=== PATIENT | female | born 1945 | race Caucasian/White ===

== ENCOUNTER 2018-04-09 07:00 | Outpatient (RCR) | payer MEDICARE, MEDICAID ==
[2015-06-08 13:37] VITALS: BMI 35.9
--- NOTE | 2018-02-24 11:43 | PT INITIAL EVALUATION ---
MEDICAL DIAGNOSIS: Cervicalgia, Bilateral Shoulder Pain, Headaches TREATMENT DIAGNOSIS: Cervicalgia, Bilateral Shoulder Pain, Headaches DATE OF ONSET: 01/20/18 SUBJECTIVE: Ethel is a 72 year old female presenting to physical therapy following the gradual onset of B shoulder pain, neck pain, and headaches. Pt reports that the pain started 1 MO prior gradually in the L shoulder first radiating down into the bicep and elbow. Eventually pain also went into the R arm at elbow level as well as wrapped around the chest and neck with headaches starting a couple days ago. Pain is currently rated as 10/10 with no headache at this time. Pt also reports a history of spinal osteoporosis. Since the pain started pt also reports shoulder and arm weakness interfering with driving and crocheting. Pain is slightly improved with taking a muscle relaxant or heat. REHAB PROBLEM LIST: Increased Pain Decreased ROM Decreased Strength Decreased Endurance Decreased Function Decreased ADL's Decreased Mobility PREVIOUS MEDICAL HISTORY: See EMR OCCUPATION: Retired OBJECTIVE: Posture: Pt has significant forward head posture with a low level cervical anterior translation. ROM: Cervical ROM: flex: full no pain, ext: min-mod restrictions with pn in L shoulder, R SB: 25 degrees with pn on L side, L SB: 45 degrees, R rot: 65 degrees with pn on L side, L rot: 55 degrees with pn on R side. Strength: Not tested at this time secondary to high level pain in shoulders. Shoulder flexion at 3-/5 on L and 3/5 on R secondary to pn. Special Tests: Chris Cervical Screen: Ext: increased pn in chest wit decrease pain in R arm, flex: increased pain in L arm, retraction: pain centralized from R arm completely and to deltoid region in R arm without pain in chest (L rotation increased to 65 degrees) Other Objective Findings: Neck Pain Disability Index: 30/50 ASSESSMENT: Ethel shows signs and symptoms consistent with cervical dysfunction with radiating pain. Physical therapy is indicated to address the above listed deficits to improve pt function with ADL's and functional mobility. Short Term Goals In 3 weeks pt will centralize pain to the cervical spine only without symptoms in the chest or B arms for improved function with ADL's. In 6 weeks pt will improve cervical mobility to full in all directions without pain for improved function with ADL's. In 6 weeks pt will improve Neck Pain Disability score to <15/50 for improved function with ADL's. Patient's Goals Decrease pain in arms and chest and improve functional mobility for ADL's. PLAN: Patient to be seen for Manual Therapy/STM/MET Strengthening/condition Ice/Heat Range of Motion Spinal Stabilization Ultrasound Stretching Iontophoresis Neuromuscular Re-ed Electrical Stim Posture/Body mechanics Biofeedback Home Exercise Program Mech./Manual Traction Therapeutic Activities 3x/Week for 6 Weeks If you have any questions, comments, or concerns about this report or plan, please contact me at . Thank you, Darshana Mack, PT, DPT, CLT MTDD
--- NOTE | 2018-03-24 12:38 | PT PLAN OF CARE ---
Physician: YVROSE Maxwell Patient is being seen: 2-3x/Week Therapist: Darshana Mack, PT, DPT, CLT Medical Diagnosis: Cervicalgia, Bilateral Shoulder Pain, Headaches Treatment Diagnosis: Cervicalgia, Bilateral Shoulder Pain, Headaches Date of Onset: 01/20/18 Date of Initial Evaluation: 02/24/18 Date patient was last seen: 03/24/18 Number of treatments: 10 Number of cancellations/No shows: 0 INTERVENTIONS: Manual Therapy/STM/MET Strengthening/condition Ice/Heat Range of Motion Spinal Stabilization Ultrasound Stretching Iontophoresis Neuromuscular Re-ed Electrical Stim Posture/Body mechanics Biofeedback Home Exercise Program Mech./Manual Traction Therapeutic Activities GOALS: In 3 weeks pt will centralize pain to the cervical spine only without symptoms in the chest or B arms for improved function with ADL's. MET In 6 weeks pt will improve cervical mobility to full in all directions without pain for improved function with ADL's. In 6 weeks pt will improve Neck Pain Disability score to <15/50 for improved function with ADL's. PATIENT'S GOAL: Decrease pain in arms and chest and improve functional mobility for ADL's. Status of Patient's Goals: / MET Patient Compliance: Good Prognosis: Good Reasons for continuing therapy: Ethel shows good progress with centralization of radiating cervical neck pain. Pain is consistently lowered with associated increased function and mobility with B shoulders and UE, however pain is not yet absent. Secondary to impingement pt also shows significant RTC atrophy, and improper scapular-humeral mechanics, resulting in shoulder impingement with overhead reaching and pain with lifting. Further PT to continue to decrease radiating cervical pain while also correcting muscular imbalance throughout B shoulders for improved function with ADL's. Posture: Pt has mild forward head posture with a low level cervical anterior translation and slight L lateral shift. ROM: Cervical ROM: flex: full no pain, ext: full with no pain, R SB: 35 degrees, L SB: 30 degrees with pn on L side, R rot: 70 degrees with pn on L side, L rot: 60 degrees with pn on L side. Shoulder ROM: Flexion: Full B with pain in end range on L side, Abd:L 90 degrees with pain, R full with pn at end range Strength: Shoulder MMT: flexion: L 4/5 with pain, R 4+/5, ext: B 4+/5, ER: B 4+/5, IR B 4+/5 with pain, Abd: L 4-/5 with pain, R 4/5 with pain Special Tests: Chris Cervical Screen: Ext: increased pn in chest wit decrease pain in R arm, flex: increased pain in L arm, retraction: pain centralized from R arm completely and to deltoid region in R arm without pain in chest (L rotation increased to 65 degrees) Outcome Measures: Neck Pain Disability Index: 16/50 If you have any questions or concerns, please feel free to contact me at [phone]. Thank you, Darshana Mack, PT, DPT, CLT MTDD
[~2018-04-09 07:00] MED LIST: HYDR-385 PO; LEVO88TA43 PO
--- NOTE | 2018-04-09 07:41 | PT PLAN OF CARE ---
Physician: YVROSE Maxwell Patient is being seen: 2-3x/week Therapist: Darshana Mack, PT, DPT, CLT Medical Diagnosis: Cervicalgia, Bilateral Shoulder Pain, Headaches Treatment Diagnosis: Cervicalgia, Bilateral Shoulder Pain, Headaches Date of Onset: 01/20/18 Date of Initial Evaluation: 02/24/18 Date patient was last seen: 04/09/18 Number of treatments: 16 Number of cancellations/No shows: 1 INTERVENTIONS: Manual Therapy/STM/MET Strengthening/condition Ice/Heat Range of Motion Spinal Stabilization Ultrasound Stretching Iontophoresis Neuromuscular Re-ed Electrical Stim Posture/Body mechanics Biofeedback Home Exercise Program Mech./Manual Traction Therapeutic Activities GOALS: In 3 weeks pt will centralize pain to the cervical spine only without symptoms in the chest or B arms for improved function with ADL's. MET In 6 weeks pt will improve cervical mobility to full in all directions without pain for improved function with ADL's. MET In 6 weeks pt will improve Neck Pain Disability score to <15/50 for improved function with ADL's. MET PATIENT'S GOAL: Decrease pain in arms and chest and improve functional mobility for ADL's. Status of Patient's Goals: 3/3 MET Patient Compliance: Good Prognosis: Good Reasons for discharge from therapy: Ethel is to discharge from physical therapy at this time secondary to completion of 3/3 functional goals. At the time of discharge pt is pain free with full return to functional and recreational activities without pain. Pt is compliant with her HEP and is to continue if any pain recurs. Posture: Pt has mild forward head posture with a low level cervical anterior translation and slight L lateral shift. ROM: Cervical ROM: flex: full no pain, ext: full with no pain, R SB: 35 degrees, L SB: 30 degrees, R rot: 70 degrees, L rot: 60 degrees Strength: Shoulder MMT: flexion: B 4/+5, ext: B 4+/5, ER: B 4+/5, IR B 4+/5, Abd: B 4/5 Special Tests: Chris Cervical Screen: Ext: increased pn in chest wit decrease pain in R arm, flex: increased pain in L arm, retraction: pain centralized from R arm completely and to deltoid region in R arm without pain in chest (L rotation increased to 65 degrees) Outcome Measures: Neck Pain Disability Index: 2/50 If you have any questions or concerns, please feel free to contact me at [phone]. Thank you, Darshana Mack, PT, DPT, CLT BARID
== END 2018-04-09 18:00 | disposition home or self-care (01) ==
LOC: PT 07:00
PROVIDERS: ATTEND Physician Assistant
DX: M54.2 Cervicalgia (principal); R51 Headache; M25.511 Pain in right shoulder; M25.512 Pain in left shoulder
CPT/HCPCS: 97161

== ENCOUNTER → 2018-11-10 | Outpatient (CLI) | payer MEDICARE, MEDICAID ==
[2015-06-08 13:37] VITALS: BMI 35.9
[2018-11-10 08:54] LABS: PLATELET COUNT, AUTOMATED 349 K/uL (150-450)
--- NOTE | 2018-11-10 09:04 | EKG ---
FACILITY: [facility] PATIENT NAME: JOHN SARGENT : [id number] MR: [id number] V: [id number] EXAM DATE: ORDERING PHYSICIAN: JENNIFER VARGAS TECHNOLOGIST: Test Reason : pre-op Blood Pressure : / mmHG Vent. Rate : 058 BPM Atrial Rate : 058 BPM P-R Int : 178 ms QRS Dur : 092 ms QT Int : 426 ms P-R-T Axes : 035 018 033 degrees QTc Int : 418 ms Sinus bradycardia with premature atrial complexes Otherwise normal ECG When compared with ECG of 08-JUN-2015 00:25, premature atrial complexes are now present Confirmed by Ignacio Marroquin ([id number]) on 11/11/2018 1:07:43 AM Referred By: Confirmed By:Ignacio Diaz
== END ==
LOC: LAB 08:00
PROVIDERS: ATTEND Orthopaedic Surgery
DX: Z01.812 Encounter for preprocedural laboratory examination (principal); Z01.810 Encounter for preprocedural cardiovascular examination; I49.1 Atrial premature depolarization; R00.1 Bradycardia, unspecified; M17.12 Unilateral primary osteoarthritis, left knee
CPT/HCPCS: 36415; 81001; 82040; 82247; 82310; 82374; 82435; 82565; 82947; 84075; 84132; 84155; 84295; 84443; 84450; 84460; 84520; 85025; 93005

== ENCOUNTER 2018-11-23 00:30 | Observation (INO) | payer MEDICARE, MEDICAID ==
--- NOTE | 2018-11-22 11:42 | LEVENE H&P ---
DATE OF ADMISSION: November 23, 2018 IDENTIFICATION/CHIEF COMPLAINT The patient is a 73-year-old woman with a chief complaint of left knee pain. HISTORY OF PRESENT ILLNESS The patient has a long-standing history of knee arthritis, progressively painful and debilitating, refractory to conservative care. Surgery is indicated to relieve symptoms after failure of nonoperative measures. PAST MEDICAL HISTORY Hypothyroidism. PAST SURGICAL HISTORY Cholecystectomy. ALLERGIES No known drug allergies. CURRENT MEDICATIONS 1. 75 mcg of levothyroxine per day. 2. Vitamins. FAMILY HISTORY Notable for a mother with uterine cancer. SOCIAL HISTORY Negative for tobacco and alcohol use. REVIEW OF SYSTEMS Negative. PHYSICAL EXAMINATION GENERAL: This is a healthy female who appears stated age. HEENT: Normocephalic, atraumatic. Extraocular muscles intact. NECK: Supple, non-tender. LUNGS: Clear to auscultation bilaterally. HEART: Regular rate and rhythm. ABDOMEN: Benign. ORTHOPEDIC EXAMINATION The left knee has crepitus, effusion is present. Extensor function is intact. Gross stability is good. Stiff at end-range. RADIOGRAPHS Demonstrate end-stage arthritis. ASSESSMENT Left knee degenerative joint disease refractory to conservative care. PLAN Per patient's request, we will proceed with total knee arthroplasty. The nature of the procedure, the risks, benefits, the anticipated rehabilitative course were reviewed. Risks include but are not limited to , major medical or anesthetic complication, infection, neurovascular injury, blood transfusions, stiffness, scarring, fracture, tendon rupture, instability, implant loosening, migration or failure, persistent or recurrent pain or symptoms, need for additional surgery and other unforeseen. She understands and wishes to proceed. A signed permit is placed in the chart. No guarantees are given or implied. ELLIS
[2018-11-22 15:53] LABS: INR 1.01
[2018-11-23] VITALS (11 sets, daily range): BP systolic 95–129; BP diastolic 51–124
[~2018-11-23] VITALS: Ht 152.4 cm; Wt 85.3 kg
[~2018-11-23 00:30] MED LIST changes: +ACET500T68 PO
[2018-11-23] MEDS ORDERED: VANCOMYCIN 1 GM VIAL ONE (07:04)
[2018-11-23] MEDS ORDERED: TRANEXAMIC AC 1000 MG/10ML SDV 1,000 MG in DEXTROSE 5% 50 ML BAG 50 ML IV ONE (07:30)
[2018-11-23] MEDS ORDERED: ROPIVACAINE/EPI/CLONIDINE/KET 50 ML SYRINGE INJ ONE (07:30)
[2018-11-23] MEDS ORDERED: CLINDAMYCIN(*) 900 MG/NS 50 ML 50 ML IVPB ONE (07:30)
[2018-11-23] MEDS ORDERED: LIDOCAINE/SOD BICARB 8.4% SYR ID ONE (07:30)
[2018-11-23] MEDS ORDERED: PREGABALIN 75 MG CAPSULE PO ONE (07:30)
[2018-11-23] MEDS ORDERED: CELECOXIB 200 MG CAP PO ONE (07:30)
[2018-11-23] MEDS ORDERED: FAMOTIDINE 20 MG TAB PO ONE (07:30)
[2018-11-23] MEDS ORDERED: NORMOSOL R SOLN(*) 1000 ML BAG 1,000 ML IV PRN ×2 (07:30→12:10)
[2018-11-23] MEDS ORDERED: fentaNYL CITR 100 MCG/2 ML AMP ONE ×2 (07:34→09:53)
[2018-11-23] MEDS ORDERED: KETAMINE HCL-NS 50 MG/5 ML SYR ONE (07:35)
[2018-11-23] MEDS ORDERED: PROPOFOL EMUL(*) 10MG/ML 20 ML 20 ML ONE (07:36)
[2018-11-23] MEDS ORDERED: DEXAMETHASONE SOD PHOS 10MG/ML ONE (07:36)
[2018-11-23] MEDS ORDERED: ONDANSETRON 4 MG/2 ML VIAL ONE (07:36)
[2018-11-23] MEDS ORDERED: LIDOCAINE MPF 1% 5 ML VIAL ONE (07:36)
[2018-11-23] MEDS: MIDAZOLAM 2 MG/2 ML VIAL IVP PRN ×2 (08:19→13:09)
[2018-11-23] MEDS ORDERED: SUCCINYLCHOL CHL 100MG/5ML SYR IVP ONE (11:00)
[2018-11-23] MEDS ORDERED: PHENYLEPHRINE 10 MG/1 ML VIAL ONE (11:00)
[2018-11-23] MEDS ORDERED: DIAZEPAM 5 MG TAB PO PRN (12:10)
[2018-11-23] MEDS ORDERED: BISACODYL 10 MG SUPP PR PRN (12:10)
[2018-11-23] MEDS ORDERED: PROMETHAZINE 25 MG/ML 1 ML AMP IVP PRN (12:10)
[2018-11-23] MEDS ORDERED: diphenhydrAMINE 50 MG/ML VIAL IVP PRN (12:10)
[2018-11-23] MEDS ORDERED: FLUSH 10 ML SYR IVP PRN (12:10)
[2018-11-23] MEDS ORDERED: diphenhydrAMINE 25 MG CAP PO PRN (12:10)
[2018-11-23] MEDS ORDERED: MAGNESIUM HYDROXIDE* 30ML UDCP PO PRN (12:10)
[2018-11-23] MEDS ORDERED: ZOLPIDEM TARTRATE 5 MG TAB PO PRN (12:10)
[2018-11-23] MEDS ORDERED: BENZOCAINE/MENTHOL 1 EACH LOZG PO PRN (12:10)
--- NOTE | 2018-11-23 13:38 | Hospitalist Consultation ---
History of Present Illness Requesting Physician Dr. Barrientos Reason for Consult Medical Management Chief Complaint s/p left knee replacement History of Present Illness She was admitted s/p left knee replacement. It is reported the surgery went well and without complication. History Problems: (1) Hypothyroidism Status: Chronic Home Meds Reported Medications Acetaminophen (TYLENOL EXTRA STRENGTH) 500 Mg Tablet, 500 MG PO Q6-8H PRN for PAIN, TAB 11/16/18 Levothyroxine Sodium (SYNTHROID) 88 Mcg Tablet, 88 MCG PO QDAY 06/07/15 Discontinued Scripts Hydrocodone Bit/Acetaminophen (HYDROCODON-ACETAMINOPHEN 5-325) 1 Each Tablet, 1 EACH PO Q4H, #30 TAB Prov:KALA RESENDIZ MD 06/11/15 Allergies: Coded Allergies: Penicillins (Verified Allergy, Unknown, 06/07/15) INEFFECTIVE PER PATIENT Hx Smoking: No Smoking Status: Never Smoker Exposure to Second Hand Smoke?: No Caffeine Intake: Coffee Caffeine/Cups Per Day: 2 CPD Hx Alcohol Use: No Hx Substance Use Disorder: No Review of Systems All Systems Reviewed/Normal: Yes, Except as Noted Exam Vital Signs Vital Signs Date Time Temp Pulse Resp B/P (MAP) Pulse Ox O2 Delivery O2 Flow Rate FiO2 11/23/18 12:39 95 Nasal Cannula 3.0 11/23/18 12:15 83 16 11/23/18 12:14 97.6 123/59 (80) General Appearance: Alert, Awake, No Acute Distress, Afebrile Neuro: No Gross deficits Cardiovascular: Regular Rate and Rhythm Respiratory: No Respiratory Distress, Clear to Auscultation GI: Abd Soft and Non-Tender Psych: Alert & Oriented X3, Appropriate Mood & Affect Assessment and Plan Problems: (1) Status post left knee replacement Status: Acute Assessment & Plan: Followed by Dr. Barrientos. She will be placed on Aspirin for DVT prophylaxis. (2) Hypothyroidism Status: Chronic Assessment & Plan: Continue chronic Levothyroxine. Venous Thromboembolism Antithrombotics Is Pt On Any Antithrombotics?: No JULI ARAUJO FIBER DESIGN ENGINEER Nov 23, 2018 13:38
--- NOTE | 2018-11-23 14:15 | NUR ---
Physical Therapy Impression PT eval complete. Spinal anesthesia still intact, limiting the potential for ambulation. Therex performed in supine: ankle pumps, glute sets, and quad sets. Cassi provided for bed mobility. MinAx2 provided for supine to sit, to assist with scooting towards EOB. MinAx1 provided for sit to supine to help lift surgical leg. Pt transfered sit<>stand from EOB with CGAx1 and use of RW. In standing, Pt attempted shifting weight side to side. Pt was primarily putting weight through arms to achieve some weight shifting. L knee buckled when attempting to put weight on it. Pt was able to control the buckling without assistance. Following treatment, Pt left on CPM at 0-30 degrees. Education provided on use, follow up needed on changing settings. Due to difficulty with WB, nursing advised to use stand pivot transfer to bed side commode. Pt left in bed with CPM on, call light in reach, and all needs met. Pt would benefit from further skilled PT care to ensure safe ambulation and educate on safe stair training. Physical Therapy Goals 1. Eddie bed mobility 2. Eddie transfers with RW 3. Eddie ambulation of 150 ft. 4. Eddie ability to ascend/descend 1 stair to simulate curb in environment 5. Independent use of CPM machine. Patient's Goals
--- NOTE | 2018-11-23 14:15 | NUR ---
This Physical Therapist or Director Of Rotc was present for the entire physical therapy session directing the services, making the skilled judgement, and was not engaged in treating another patient or doing another task at the same time as the treatment session. Addendum: 11/23/18 at 1607 by MARCIAL MC PT Amended: Links added.
--- NOTE | 2018-11-23 14:26 | RADIOLOGY IMAGING REPORT ---
FACILITY: [facility] PATIENT NAME: Ethel Cali : 1945 MR: [id number] V: [id number] EXAM DATE: ORDERING PHYSICIAN: JENNIFER VARGAS TECHNOLOGIST: [place] [facility] [place] Ethel Cali : 1945 Visit/Account:[id number] Date of Sevice: 11/23/2018 KNEE LIMITED LEFT HISTORY: POST L TKA COMPARISON: None. FINDINGS: AP and crosstable lateral views left knee obtained. Sequela of left total knee arthroplasty. Hardware appears well seated and unremarkable alignment. O sseous structures otherwise unremarkable, intact and normally aligned. Soft tissue gas within the knee joint capsule consistent with recent surgery. IMPRESSION: Unremarkable exam left knee following recent tricompartmental arthroplasty. Report Dictated By: Alphonso Alberto MD at 11/23/2018 2:19 PM Report E-Signed By: Alphonso Alberto MD at 11/23/2018 2:20 PM WSN:ADILENE
[2018-11-23] MEDS: CLINDAMYCIN(*) 900 MG/NS 50 ML 50 ML IVPB SCH (17:00)
[2018-11-23] MEDS ORDERED: NS(*) 0.9% 250 ML BAG 250 ML ONE (17:17)
--- NOTE | 2018-11-23 17:20 | OPERATIVE REPORT 1 ---
EVENT DATE: November 23, 2018 SURGEON: Aquilino Barrientos MD ANESTHESIOLOGIST: Trey Souza MD ANESTHESIA: General plus spinal. PARK SUPERINTENDENT: DANNY Wilson PREOPERATIVE DIAGNOSIS Left knee degenerative joint disease. POSTOPERATIVE DIAGNOSIS Left knee degenerative joint disease. PROCEDURE PERFORMED Left total knee arthroplasty. ESTIMATED BLOOD LOSS Minimal. DRAINS None. SPECIMENS None. COMPLICATIONS None apparent. TOURNIQUET TIME 51 minutes. IMPLANTS USED [place] Triathlon knee system, a 3 left PS femur, 4 standard tibial baseplate, 33 mm universal symmetric polyethylene patella, and an 11 mm PS tibial tray liner. Polyethylene is X3. INDICATIONS Sonia is a 73-year-old woman with intractable pain and disability related to end-stage knee arthritis. Surgery is indicated to relieve her symptoms after failure of nonoperative measures. DESCRIPTION OF PROCEDURE Patient is taken to the operating room and placed supine on the operating table. General anesthesia is induced. Antibiotics are administered IV along with TXA. Left lower extremity is prepped and draped in the usual sterile fashion for orthopedic surgery. Limb is exsanguinated with an Esmarch bandage. Tourniquet is inflated to 275 mmHg. A midline longitudinal incision is made and carried down through the skin and subcutaneous tissue to the extensor mechanism. Full- thickness flaps are developed far enough medially to allow medial parapatellar arthrotomy be performed. Patella is everted. Knee is brought into the flexed position. Fat pad, anterior horns of the menisci, and the cruciate ligaments are debrided. Subperiosteal medial release is initiated in a titrated fashion to start to balance the knee. A step drill is used to enter the distal femur. A 10-inch long alignment guide is used to engage the isthmus. Cut is set for 6 degrees of valgus relative to the anatomic axis. A 10 mm resection block is applied and pinned. Cuts are made with an oscillating saw. AP sizing guide is applied. Distal femoral cut is positioned for 3 degrees of external rotation relative to the posterior condyles. The size 3 appears optimal without risk of notching. The four-in-one cutting block is applied. Anterior, posterior, posterior chamfer, and anterior chamfer cuts are made respectively. PS block is applied, fits nicely, and centered. Medial and lateral bone is removed from the box. Trial femur has nice [id number] fit. Attention is turned to tibial preparation. The extramedullary guide is applied, positioned for varus, valgus, posterior slope, and rotation. This is set to resect 9 mm from the relatively intact lateral tibial plateau. It is dropped down another millimeter or two to assure an adequate cut. Block is pinned. Extramedullary alignment check is made. Cuts are made with an oscillating saw. Osteophytes are removed, and the ligaments are balanced to achieve rectangular and equal gaps. The size 4 baseplate provides optimum bony coverage without soft tissue overhang. This is inserted along with the trial liner and the trial femur. Knee is brought to full extension. Patella is taken from a starting thickness of 23 to a residual of 14 with a patellar clamp and oscillating saw. The 33 provides optimal bony coverage without soft tissue overhang. Lug holes are drilled. Patella tracks nicely with the no-touch technique. Final tibial preparation consists of assuring appropriate rotational and translational positioning of the component. Boss is reamed. Fin is punched. Surface is lavaged. A mix of methacrylate is made, and components are cemented in a single stage. Once the cement is fully polymerized, tourniquet is deflated. Hemostasis is assured. Wound is copiously lavaged to remove all loose debris. The 11 PS tibial tray liner fills up the gap ideally, allowing the knee to drop to full extension without hyperextension, providing optimal soft tissue tension and stability. Tray is lavaged and dried, and the actual liner is locked into the baseplate. Joint is reduced. Arthrotomy is closed with in flexion with #2 Ethibond, subcutaneous tissue with 3-0 Vicryl, and skin with ZipLine closure. Xeroform is applied for a dry, sterile dressing as well as a compression wrap. Patient is awakened from anesthesia and taken to the recovery room in stable condition having tolerated the procedure well. PLAN Plan is for standard TKA rehab protocol postop. [facility]
[2018-11-23] MEDS: CELECOXIB 200 MG CAP PO SCH (17:23)
[2018-11-23] MEDS: ACETAMINOPHEN 325 MG TAB PO PRN (21:33)
[2018-11-24] MEDS: CLINDAMYCIN(*) 900 MG/NS 50 ML 50 ML IVPB SCH ×2 (00:43→09:45)
[2018-11-24 03:41] VITALS: BP 105/47
--- NOTE | 2018-11-24 03:48 | NUR ---
Clindamycin ABX was administered but not scanned, administered medication in EMR, KEN MCLEAN
[2018-11-24] MEDS: ACETAMINOPHEN 325 MG TAB PO PRN (05:48)
[2018-11-24] MEDS: LEVOTHYROXINE SOD 0.075 MG TAB PO SCH (05:48)
[2018-11-24 06:47] VITALS: BP 125/60
[2018-11-24] MEDS: CELECOXIB 200 MG CAP PO SCH ×2 (07:49→16:29)
[2018-11-24 08:25] VITALS: Ht 152.4 cm; Wt 85.3 kg
--- NOTE | 2018-11-24 08:50 | NUR ---
Physical Therapy Impression Patient presents in bed and is agreeable to therapy. Patient reports she feels better than she has in a long time. Patient instructed in use of CPM and how to change degrees of flexion. CPM 0-35. removed for therapy session. Patient was SBA for bed mobility and SBA for CGA. Patient instructed in gait training with FWW ~200 feet CGA with cuing for increased weight shift onto L LE and for posture. Patient then ascended and descended 1 platform step x 2 reps with FWW and CGA step to step mod cuing to stay close to step and for sequencing. Patient denied pain this treatment session. Will ambulate patient in afternoon and peform exercises. Physical Therapy Goals 1. Eddie bed mobility 2. Eddie transfers with RW 3. Eddie ambulation of 150 ft. 4. Eddie ability to ascend/descend 1 stair 5. Independent use of CPM machine. Patient's Goals
--- NOTE | 2018-11-24 09:44 | Hospitalist Progress Note ---
Subjective Progress Notes Subjective She was admitted s/p knee replacement. She had no acute events overnight. Patient Complains of: Cardiovascular: No: Chest Pain Respiratory: No: Shortness of Breath Physical Exam Vital Signs Date Time Temp Pulse Resp B/P (MAP) Pulse Ox O2 Delivery O2 Flow Rate FiO2 11/24/18 07:50 95 11/24/18 07:49 Room Air 11/24/18 06:47 97.8 72 18 125/60 (81) 11/24/18 03:41 2.5 Intake and Output 11/24/18 07:01 Intake Total 3130 ml Output Total 0 ml Balance 3130 ml Intake Oral 680 ml IV Total 2450 ml Output Urine Total 0 ml Stool Total 0 ml Urine/Stool Mix 0 ml Emesis 0 ml # Voids 3 # Bowel Movements 0 General Appearance: Alert, Awake, No Acute Distress, Afebrile Cardiovascular: Regular Rate and Rhythm Respiratory: No Respiratory Distress, Clear to Auscultation Psych: Alert & Oriented X3, Appropriate Mood & Affect Assessment and Plan Problems: (1) Status post left knee replacement Status: Acute Assessment & Plan: Followed by Dr. Barrientos. She will be placed on Aspirin for DVT prophylaxis. (2) Hypothyroidism Status: Chronic Assessment & Plan: Continue chronic Levothyroxine. Exam Sepsis Risk: No Definite Risk JULI ARAUJO CONSTRUCTION EQUIPMENT TECHNICIAN Nov 24, 2018 09:44
[2018-11-24] MEDS: ASPIRIN 325 MG TAB PO SCH (09:45)
[2018-11-24] MEDS: APAP/HYDROCODONE 325/7.5 TAB PO PRN ×3 (09:50→21:26)
[2018-11-24 10:11] VITALS: BP 133/63
--- NOTE | 2018-11-24 13:55 | NUR ---
Physical Therapy Impression Patient presents in room and agrees to therapy and reports that she is feeling much better than in the past. Patient was on CPM and was taken off for therapy. Patient instructed in supine therapeutic exercises including ankle pumps x 10, quad sets and glute sets x10 reps, SAQ x 10 reps, heel slides x 10 reps. Patient instructed in gait training with FWW throughout hospital ~ 350 feet SBA with slow step through gait. Patient performed toileting with SBA and was left in bed with call light CPM 0-35 with patient operating control, and ice. Physical Therapy Goals 1. Eddie bed mobility 2. Eddie transfers with RW 3. Eddie ambulation of 150 ft. 4. Eddie ability to ascend/descend 1 stair 5. Independent use of CPM machine. Patient's Goals
[2018-11-24 16:44] VITALS: BP 116/61
[2018-11-24 18:39] VITALS: BP 129/56
[2018-11-25 00:25] VITALS: BP 132/78
[2018-11-25] MEDS: APAP/HYDROCODONE 325/7.5 TAB PO PRN ×2 (01:37→05:58)
[2018-11-25 02:47] VITALS: BP 118/57
[2018-11-25] MEDS: LEVOTHYROXINE SOD 0.075 MG TAB PO SCH (05:58)
[2018-11-25 06:51] VITALS: BP 118/55
[2018-11-25 07:11] VITALS: BP 127/62
[2018-11-25] MEDS ORDERED: ASPI-757 PO (08:29)
[2018-11-25] MEDS: CELECOXIB 200 MG CAP PO SCH (08:51)
[2018-11-25] MEDS: ASPIRIN 325 MG TAB PO SCH (08:52)
--- NOTE | 2018-11-25 09:46 | NUR ---
Physical Therapy Impression Patient presents in room and is agreeable to therapy. Patient had some dizziness due to pain meds this am and needed to slow down for transfers. Patient instructed in use of CPM and was able to demonstrate I use of CPM. Patient bed mobility was mod I and transfers mod I. Patient instructed in gait training with her 4WW throughout hospital with SBA ~ 250 feet with decreased jeromy today due to dizziness after about 50 feet patient had normal jeromy. Patient demonstrated safe technique with walker. Patient transferred back to bed mod I. Patient felt much better after ambulation and reports that her dizziness has subsided. All goals were met and patient is ready to d/c to services. Physical Therapy Goals 1. Eddie bed mobility 2. Eddie transfers with RW 3. Eddie ambulation of 150 ft. 4. Eddie ability to ascend/descend 1 stair 5. Independent use of CPM machine. Patient's Goals
--- NOTE | 2018-11-25 10:02 | Hospitalist Progress Note ---
Subjective Progress Notes Subjective She was admitted s/p knee replacement. She had no acute events overnight. Patient Complains of: Cardiovascular: No: Chest Pain Respiratory: No: Shortness of Breath Physical Exam Vital Signs Date Time Temp Pulse Resp B/P (MAP) Pulse Ox O2 Delivery O2 Flow Rate FiO2 11/25/18 07:11 98.8 68 14 127/62 (83) 94 Nasal Cannula 2.0 Intake and Output 11/25/18 07:01 Intake Total 965 ml Balance 965 ml Intake Oral 910 ml IV Total 55 ml # Voids 2 General Appearance: Alert, Awake, No Acute Distress, Afebrile Neuro: No Gross deficits Cardiovascular: Regular Rate and Rhythm Respiratory: No Respiratory Distress, Clear to Auscultation GI: Soft and Non-Tender Psych: Alert & Oriented X3, Appropriate Mood & Affect Assessment and Plan Problems: (1) Status post left knee replacement Status: Acute Assessment & Plan: Followed by Dr. Barrientos. She will be placed on Aspirin for DVT prophylaxis. (2) Hypothyroidism Status: Chronic Assessment & Plan: Continue chronic Levothyroxine. Exam Sepsis Risk: No Definite Risk JULI ARAUJO [employer] Nov 25, 2018 10:02
[2018-11-25 12:16] VITALS: BP 134/69
== END 2018-11-25 08:51 | disposition home or self-care (01) ==
LOC: OR 00:30 → INTOOBSV 12:15 → MED 12:15
PROVIDERS: ADMIT Orthopaedic Surgery; ATTEND Orthopaedic Surgery
DX: M17.12 Unilateral primary osteoarthritis, left knee (principal); E03.9 Hypothyroidism, unspecified
CPT/HCPCS: 27447; 36415; 73560; 85610; 86850; 86900; 86901; 97110; 97116; 97161; 97530; A9270; C1713; C1776; G0378; J0330; J1100; J2001; J2250; J2370; J2405; J2704; J3010; J3370; J3490; J7060